=== PATIENT | male | born 1975 | race African-American/Black ===

== ENCOUNTER 2017-03-04 13:33 | Emergency (ER) | payer OTHER ==
[2017-03-04 13:43] VITALS: BP 111/69
--- NOTE | 2017-03-04 14:21 | UC ---
HPI Febrile Illness - HPI Summary HPI Summary: 41 yo male with a 4 day hx of f/c, headache/confusion/weakness and drainage from neck keloid anorexia and vomiting few episodes of near faints no diarrhea no cough no UTI symptoms smoker occas ETOH denies street drugs - History of Current Complaint Chief Complaint: UCSkin Time Seen by Provider: 03/04/17 13:52 Hx Obtained From: Patient, Family/Decorator Hand Onset/Duration: Started Days Ago Timing: Constant Initial Severity: Moderate Current Severity: None Pain Intensity: 3 Pain Scale Used: 0-10 Numeric Aggravating Factors: Nothing Alleviating Factors: Nothing Associated Signs and Symptoms: Altered Mental Status, Chills - rigors, Diaphoresis - cold and clammy, Dizziness, Drainage - neck keloid, Fluid Intake - decreases, Headache - 3/10, Nausea, Night Sweats, Vomiting, Weakness - Allergy/Home Medications Allergies/Adverse Reactions: Allergies Allergy/AdvReac Type Severity Reaction Status Date / Time No Known Allergies Allergy Verified 03/04/17 13:43 Home Medications: Home Medications NK [No Home Medications Reported] 03/04/17 [History Confirmed 03/04/17] PMH/Surg Hx/FS Hx/Imm Hx Previously Healthy: Yes - Surgical History Surgical History: Yes Surgery Procedure, Year, and Place: Keloid - Family History Known Family History: Positive: Hypertension Family History: Pt denies any PMHx. EMR indicates negative htn/dm/cardiac. - Social History Alcohol Use: Occasionally Substance Use Type: None Smoking Status (MU): Light Every Day Tobacco Smoker Review of Systems Constitutional: Fever, Chills, Fatigue Gastrointestinal: Vomiting, Nausea Neurological: Headache, Weakness Is Patient Immunocompromised?: No All Other Systems Reviewed And Are Negative: Yes Physical Exam Triage Information Reviewed: Yes Appearance: Ill-Appearing Vital Signs: Initial Vital Signs Temp 98.0 F 03/04/17 13:38 Pulse 91 03/04/17 13:38 Resp 18 03/04/17 13:38 BP 111/69 03/04/17 13:38 Pulse Ox 98 03/04/17 13:38 Vital Signs Reviewed: Yes Eyes: Positive: Conjunctiva Clear ENT: Positive: Hearing grossly normal, Pharynx normal, Uvula midline. Negative : Nasal congestion, Nasal drainage, Tonsillar swelling, Tonsillar exudate, Trismus, Muffled voice, Hoarse voice, Dental tenderness, Sinus tenderness Neck: Positive: Supple, Nontender, No Lymphadenopathy Respiratory: Positive: Normal breath sounds, No respiratory distress, No accessory muscle use Cardiovascular: Positive: RRR, No Murmur Abdomen Description: Positive: Nontender, No Organomegaly Musculoskeletal: Positive: ROM Intact, No Edema Neurological: Positive: Lethargic, Other: - tremors RUE with right arm ataxia attempting finger- nose Psychological: Positive: Other: - flat affect Skin Exam: Other - keloid neck pea sized draining sinus Course/Dx - Course Assessment/Plan: d/w [facility]. accepts pt [facility] [place] ED. transfer via EMS - Diagnoses Clinic Provider Diagnoses: ALTERED MENTAL STATUS. FEVER/CHILLS UNCERTAIN CAUSE. WEAKNESS Discharge - Discharge Plan Condition: Guarded Disposition: TRANS HIGHER LVL OF CARE FAC
== END 2017-03-04 14:33 | disposition short-term general hospital (02) ==
LOC: UCEAST 13:33
DX: R41.82 Altered mental status, unspecified (principal); R50.9 Fever, unspecified; R53.1 Weakness; Z72.0 Tobacco use
CPT/HCPCS: 93005; 99213; G0463

== ENCOUNTER 2017-03-04 14:48 | Emergency (ER) | payer OTHER ==
[2017-03-04] MEDS ORDERED: Sulfamethox/Trimethoprim DS 800/160* TAB PO ONE (16:23)
[2017-03-04 16:55] VITALS: BP 125/80
--- NOTE | 2017-03-05 07:34 | ED ---
Yolette Beltran Gabriel, scribed for Constantine Castillo MD on 03/04/17 at 1614 . Skin Complaint - HPI Summary HPI Summary: This patient is a 41 year old M BIBA to [facility] from accompanied by girlfriend with a chief complaint of bleeding from a recent surgery. Pt states he had a recent surgery to remove an ingrown hair under his chin and he woke up with blood dripping down his neck onto his shirt. Patient reports HAY, diaphoresis, and tremors. Triage note has changed in comparison to HPI. - History of Current Complaint Chief Complaint: EDGeneral Time Seen by Provider: 03/04/17 16:01 Stated Complaint: AMS Hx Obtained From: Patient Onset/Duration: Still Present Pain Intensity: 0 Pain Scale Used: 0-10 Numeric Skin Location: Face - under chin - Allergy/Home Medications Allergies/Adverse Reactions: Allergies Allergy/AdvReac Type Severity Reaction Status Date / Time No Known Allergies Allergy Verified 03/04/17 13:43 PMH/Surg Hx/FS Hx/Imm Hx Previously Healthy: No Sensory History: Denies: Hx Legally Blind EENT History: Denies: Hx Deafness - Surgical History Surgery Procedure, Year, and Place: Keloid Infectious Disease History: No Infectious Disease History: Denies: Traveled Outside the [place] in Last 30 Days - Family History Known Family History: Positive: Hypertension Family History: Pt denies any PMHx. EMR indicates negative htn/dm/cardiac. - Social History Alcohol Use: Occasionally Hx Substance Use: No Substance Use Type: Reports: None Hx Tobacco Use: No Smoking Status (MU): Light Every Day Tobacco Smoker Review of Systems Constitutional: Other - tremors Positive: Skin Diaphoresis Positive: Headache All Other Systems Reviewed And Are Negative: Yes Physical Exam Vital Signs On Initial Exam: Initial Vitals Temp Pulse Resp BP Pulse Ox 98.2 F 87 20 134/79 100 03/04/17 15:00 03/04/17 15:00 03/04/17 15:00 03/04/17 15:00 03/04/17 15:00 - Motley Coma Scale Coma Scale Total: 15 Diagnostics - Vital Signs Vital Signs Temp Pulse Resp BP Pulse Ox 03/04/17 15:55 66 8 100 03/04/17 15:00 98.2 F 87 20 134/79 100 - Laboratory Lab Statement: Any lab studies that have been ordered have been reviewed, and results considered in the medical decision making process. Course/Dx - Course Assessment/Plan: Patient with keloid scar under his chin. He had an abcess which it drain and now with no pain only small amount of discharge and the abscess has resolved. . Lung exam before discharge: CTA B/L. Good air exchange. No wheezing or crackles heard. CVS: S1 and S2 present. No murmurs appreciated. Patient is alert and oriented x 3. Patient is hemodynamically stable. Patient will be discharged home with follow up PCP in the next 2-3 days - Differential Diagnoses - Skin Complaint Differential Diagnoses: Abscess, Cellulitis, Drug Rash, Eczema - Diagnoses Provider Diagnoses: Cellulitis Discharge - Discharge Plan Condition: Stable Disposition: HOME Prescriptions: Sulfamethox/Trimethoprim DS* [Bactrim DS 800/160 TAB*] 1 tab PO BID #20 tab Patient Education Materials: Sulfamethoxazole/Trimethoprim (By mouth), Cellulitis (ED) Referrals: No Primary Care Phys,NOPCP [Primary Care Provider] - Additional Instructions: RETURN TO THE EMERGENCY DEPARTMENT FOR CHANGING OR WORSENING SYMPTOMS. The documentation as recorded by the Yolette burris Gabriel accurately reflects the service I personally performed and the decisions made by , Constantine Castillo MD.
== END 2017-03-04 16:55 | disposition home or self-care (01) ==
LOC: ED 14:48
DX: L03.211 Cellulitis of face (principal)
CPT/HCPCS: 87070; 87077; 87186; 87205; 87640; 87641; 99283; A9270-GY

== ENCOUNTER 2017-11-02 15:14 | Emergency (ER) | payer OTHER ==
[2017-11-02] MEDS ORDERED: Lidocain 1% EPI 1:100,000 * 30 ML MDV INJ ONE (16:25)
--- NOTE | 2017-11-02 16:30 | ED ---
Skin Complaint - HPI Summary HPI Summary: Patient is a 41-year-old male who presents emergency department for an abscess under his chin. Patient states his history of ingrown hair to the area and a keloid scar. Patient states he's developed an abscess in this area in the past. Pt. states he last had it drained by surgery a few years ago. He states over the last 3-4 days areas become painful and swollen. He denies fever, chills, vomiting. Has no other past medical history. Touching affected area makes symptoms worse. Rest makes symptoms better. Symptoms are mild in severity. - History of Current Complaint Chief Complaint: EDRashSkinAbscess Time Seen by Provider: 11/02/17 15:53 Stated Complaint: FACIAL INJURY Hx Obtained From: Patient Pain Intensity: 8 - Allergy/Home Medications Allergies/Adverse Reactions: Allergies Allergy/AdvReac Type Severity Reaction Status Date / Time No Known Allergies Allergy Verified 11/02/17 15:25 PMH/Surg Hx/FS Hx/Imm Hx Previously Healthy: Yes Sensory History: Denies: Hx Legally Blind, Hx Deafness Opthamlomology History: Denies: Hx Legally Blind - Surgical History Surgery Procedure, Year, and Place: Keloid Infectious Disease History: No Infectious Disease History: Denies: Traveled Outside the [place] in Last 30 Days - Family History Known Family History: Positive: Hypertension Family History: Pt denies any PMHx. EMR indicates negative htn/dm/cardiac. - Social History Occupation: Employed Full-time Lives: With Family Alcohol Use: Occasionally Hx Substance Use: No Substance Use Type: Reports: None Hx Tobacco Use: No Smoking Status (MU): Light Every Day Tobacco Smoker Review of Systems Constitutional: Negative Negative: Fever, Chills Negative: Vomiting, Nausea Positive: Other - abscess All Other Systems Reviewed And Are Negative: Yes Physical Exam Triage Information Reviewed: Yes Vital Signs On Initial Exam: Initial Vitals Temp Pulse Resp BP Pulse Ox 98.9 F 65 16 129/84 97 11/02/17 15:22 11/02/17 15:22 11/02/17 15:22 11/02/17 15:22 11/02/17 15:22 Vital Signs Reviewed: Yes Appearance: Positive: Well-Appearing - Patient sitting on bed in no acute distress. Pleasant. Significant other present. Skin: Positive: Warm, Dry, Other - Noted to the submandibular region there is a large area of fluctuance, roughly 6cm. Just to the right of this is a keloid scar. Head/Face: Positive: Normal Head/Face Inspection Eyes: Positive: Normal Neck: Positive: Supple, Nontender. Negative: No Lymphadenopathy Neurological: Positive: Normal, CN Intact II-III Psychiatric: Positive: Affect/Mood Appropriate Procedures - Incision and Drainage Neck Anesthesia: Local, Lidocaine - with epi 3 cc Instrument(s): Scalpel - Coupious amount of foul smelling purulent material expressed. Packing: Gauze - 1/4 inch Diagnostics - Vital Signs Vital Signs Temp Pulse Resp BP Pulse Ox 11/02/17 15:22 98.9 F 65 16 129/84 97 - Laboratory Lab Statement: Any lab studies that have been ordered have been reviewed, and results considered in the medical decision making process. Course/Dx - Course Course Of Treatment: Patient presenting to the ER for abscess just under his chin. He is afebrile with stable vital signs. Patient is very well-appearing and nontoxic. Patient examined by Dr. Lemon as well. Abscess was incised and drained as noted above. Will place patient on Bactrim and ibuprofen. Advised packing removal in 48 hours. Advised patient to call his surgeon tomorrow to schedule a follow-up appointment for definitive care. To apply warm compresses. To return to the ER sooner for increased redness, swelling, fever, vomiting. Patient understands and agrees with plan. - Differential Diagnoses - Skin Complaint Differential Diagnoses: Abscess, Cellulitis - Diagnoses Provider Diagnoses: Abscess Discharge - Sign-Out/Discharge Documenting (check all that apply): Patient Departure - Discharge Plan Condition: Good Disposition: HOME Prescriptions: Ibuprofen 800 mg PO Q8H #20 tablet Sulfamethox/Trimethoprim DS* [Bactrim DS 800/160 TAB*] 1 tab PO BID #20 tab Patient Education Materials: Abscess (ED) Forms: *Work Release Referrals: No Primary Care Phys,NOPCP [Primary Care Provider] - Additional Instructions: Packing removal/change in 48 hours Call your surgeon tomorrow to schedule a follow up appointment Take medications as directed Apply warm compresses Return to ER for increased redness, swelling, fever, vomiting - Billing Disposition and Condition Condition: GOOD Disposition: Home
[2017-11-02 17:50] VITALS: BP 124/83
--- NOTE | 2017-11-05 07:01 | PN ---
Progress Note - Progress Note Date of Service: 11/05/17 Note: Patient's wound culture grew Peptostreptococcus. Patient placed on Bactrim which normally is not sensitive so will have stop antibiotic. We'll send a prescription for Augmentin 500mg twice a day for 7 days. attempted to call patient and mail box is full. will have letter sent. attempted to call patient again and unable to get an answer.
== END 2017-11-02 17:49 | disposition home or self-care (01) ==
LOC: ED 15:14
DX: L02.01 Cutaneous abscess of face (principal); Z87.2 Personal history of diseases of the skin and subcutaneous tissue; F17.200 Nicotine dependence, unspecified, uncomplicated
CPT/HCPCS: 10060; 36415; 86703; 87070; 87076; 87205; 87640; 87641; 99282